=== PATIENT | male | born 1975 | race Asian ===

== ENCOUNTER 2019-07-16 09:25 | Emergency (ER) | payer OTHER ==
[~2019-07-16] VITALS: Ht 167.6 cm; Wt 86.8 kg
[2019-07-16 09:31] VITALS: BP 148/52
[2019-07-16] MEDS ORDERED: QUET100T PO (09:35)
== END 2019-07-16 11:23 | disposition home or self-care (01) ==
LOC: EMS 09:29
DX: K08.89 Other specified disorders of teeth and supporting structures (principal); R03.0 Elevated blood-pressure reading, without diagnosis of hypertension; F32.9 Major depressive disorder, single episode, unspecified; F20.9 Schizophrenia, unspecified; F17.210 Nicotine dependence, cigarettes, uncomplicated; F19.90 Other psychoactive substance use, unspecified, uncomplicated

== ENCOUNTER 2020-11-18 21:11 | Emergency (ER) | payer OTHER ==
[~2020-11-18] VITALS: Ht 165.1 cm; Wt 65.9 kg
[~2020-11-18 21:11] MED LIST: QUET100T PO
[2020-11-18 21:35] VITALS: BP 122/70
[2020-11-18] MEDS ORDERED: FLUO10CA24 PO (21:48)
[2020-11-18] MEDS ORDERED: LAMO25TA25 PO (21:48)
== END 2020-11-18 23:00 | disposition left against medical advice (07) ==
LOC: EMS 21:11
DX: J02.9 Acute pharyngitis, unspecified (principal); Z53.21 Procedure and treatment not carried out due to patient leaving prior to being seen by health care provider

== ENCOUNTER 2020-11-19 07:32 | Emergency (ER) | payer OTHER ==
[~2020-11-19] VITALS: Ht 165.1 cm; Wt 79.5 kg
[~2020-11-19 07:32] MED LIST changes: +FLUO10CA24 PO; +LAMO25TA25 PO
[2020-11-19 09:57] VITALS: BP 125/71
[2020-11-19] MEDS ORDERED: ACETAMINOPHEN 500 MG TABLET PO ONE (10:00)
== END 2020-11-19 10:09 | disposition home or self-care (01) ==
LOC: EMS 07:46
DX: H61.22 Impacted cerumen, left ear (principal); H66.92 Otitis media, unspecified, left ear; F31.9 Bipolar disorder, unspecified; I10 Essential (primary) hypertension; F20.9 Schizophrenia, unspecified; F17.210 Nicotine dependence, cigarettes, uncomplicated; F14.90 Cocaine use, unspecified, uncomplicated; F15.90 Other stimulant use, unspecified, uncomplicated
CPT/HCPCS: 69209; 99283

== ENCOUNTER 2020-11-24 08:00 | Emergency (ER) | payer OTHER ==
[~2020-11-24] VITALS: Ht 167.6 cm; Wt 75.0 kg
[2020-11-24 08:07] VITALS: BP 114/70
[2020-11-24] MEDS ORDERED: AMOX500C2 PO (08:22)
[2020-11-24] MEDS ORDERED: NEOMYCIN/POLYMYXIN B/HYDROCORT 10 ML OTIC SUSPENSION AS ONE (09:15)
== END 2020-11-24 09:42 | disposition home or self-care (01) ==
LOC: EMS 08:00
DX: H61.22 Impacted cerumen, left ear (principal); F31.9 Bipolar disorder, unspecified; I10 Essential (primary) hypertension; F20.9 Schizophrenia, unspecified; F17.210 Nicotine dependence, cigarettes, uncomplicated; F14.90 Cocaine use, unspecified, uncomplicated; F12.90 Cannabis use, unspecified, uncomplicated; F19.90 Other psychoactive substance use, unspecified, uncomplicated
CPT/HCPCS: 99283

== ENCOUNTER 2021-06-16 16:35 | Emergency (ER) | payer OTHER ==
[~2021-06-16] VITALS: Ht 167.6 cm; Wt 68.2 kg
[~2021-06-16 16:35] MED LIST changes: +AMOX500C2 PO
[2021-06-16] MEDS ORDERED: PROPARACAINE HCL 0.5% 15 ML OPHTHALMIC SOLUTION OU ONE (17:30)
[2021-06-16] MEDS ORDERED: FLUORESCEIN SODIUM 1 MG STRIP ONE (18:20)
[2021-06-16 19:43] VITALS: BP 153/91
== END 2021-06-16 20:06 | disposition home or self-care (01) ==
LOC: EMS 16:39
DX: T59.3X3A Toxic effect of lacrimogenic gas, assault, initial encounter (principal); H57.89 Other specified disorders of eye and adnexa; F31.9 Bipolar disorder, unspecified; I10 Essential (primary) hypertension; F20.9 Schizophrenia, unspecified; F17.210 Nicotine dependence, cigarettes, uncomplicated; F14.90 Cocaine use, unspecified, uncomplicated; F12.90 Cannabis use, unspecified, uncomplicated; F19.90 Other psychoactive substance use, unspecified, uncomplicated; Y92.89 Other specified places as the place of occurrence of the external cause
CPT/HCPCS: 99283

== ENCOUNTER 2021-06-26 11:41 | Emergency (ER) | payer OTHER ==
[~2021-06-26] VITALS: Ht 167.6 cm; Wt 72.7 kg
[2021-06-26 11:54] VITALS: BP 157/103
[2021-06-26 12:18] LABS: COVID AG,FIA SOURCE NASOPHARYNGEAL
[2021-06-26] MEDS ORDERED: ALBUTEROL SULFATE HFA 90 MCG/PUFF 8 GM INHALER IH ONE (13:15)
== END 2021-06-26 13:48 | disposition home or self-care (01) ==
LOC: EMS 11:41
DX: I10 Essential (primary) hypertension (principal); R06.00 Dyspnea, unspecified; F31.9 Bipolar disorder, unspecified; F20.9 Schizophrenia, unspecified; F17.210 Nicotine dependence, cigarettes, uncomplicated; F14.90 Cocaine use, unspecified, uncomplicated; F12.90 Cannabis use, unspecified, uncomplicated; F19.90 Other psychoactive substance use, unspecified, uncomplicated; Z20.822 Contact with and (suspected) exposure to COVID-19
CPT/HCPCS: 71045; 94640; 99284; J3535

== ENCOUNTER 2023-04-17 09:44 | Emergency (ER) | payer OTHER ==
[~2023-04-17] VITALS: Ht 165.1 cm; Wt 76.0 kg
[~2023-04-17 09:44] MED LIST changes: -LAMO25TA25 PO; +LAMO25TA36 PO
[2023-04-17 10:01] VITALS: TEMP 98.4
[2023-04-17 11:59] VITALS: BP 116/67; PULSE 60; RESP 16
[2023-04-17] MEDS ORDERED: IBUP-1492 PO (13:30)
== END 2023-04-17 13:41 | disposition home or self-care (01) ==
LOC: EMS 09:44
DX: S30.22XA Contusion of scrotum and testes, initial encounter (principal); F31.9 Bipolar disorder, unspecified; I10 Essential (primary) hypertension; F20.9 Schizophrenia, unspecified; F17.210 Nicotine dependence, cigarettes, uncomplicated; F14.90 Cocaine use, unspecified, uncomplicated; F12.90 Cannabis use, unspecified, uncomplicated; F15.90 Other stimulant use, unspecified, uncomplicated; X58.XXXA Exposure to other specified factors, initial encounter; Y93.89 Activity, other specified; Y92.89 Other specified places as the place of occurrence of the external cause; Y99.8 Other external cause status
CPT/HCPCS: 76870; 99284; Z7502

== ENCOUNTER 2023-07-24 12:47 | Inpatient (IN) | payer MEDICAID, OTHER ==
[~2023-07-24] VITALS: Ht 167.6 cm; Wt 82.7 kg
[~2023-07-24 12:47] MED LIST changes: -AMOX500C2 PO; -FLUO10CA24 PO; +IBUP-1492 PO; -LAMO25TA36 PO
[2023-07-24] MEDS ORDERED: [UNRECOGNIZED DRUG - CODE] TP (13:47)
[2023-07-24] MEDS ORDERED: METO-408 PO (13:47)
[2023-07-24] MEDS ORDERED: FLUO60SO10 TP (13:47)
[2023-07-24] MEDS ORDERED: FOLI-130 PO (13:47)
[2023-07-24 13:52] LABS: BASOPHILS % (AUTO) 0.5 % (0.0-2.0); EOSINOPHILS % (AUTO) 0.3 % (1.0-6.0); HEMATOCRIT 42.7 % (41-53); HEMOGLOBIN 13.5 g/dL (13.5-17.5); LYMPHOCYTES # (AUTO) 1.7 K/uL (1.0-4.8); LYMPHOCYTES % (AUTO) 13.5 % (22.0-44.0); MEAN CORPUSCULAR HEMOGLOBIN 27.3 pg (26.0-34.0); MEAN CORPUSCULAR HGB CONC 31.6 G/dL (31.0-37.0); MEAN CORPUSCULAR VOLUME 87 fL (80-100); MONOCYTES % (AUTO) 8.3 % (2.0-9.0); NEUTROPHILS # (AUTO) 9.6 K/uL (1.8-7.7); NEUTROPHILS % (AUTO) 77.4 % (40.0-70.0); PLATELET COUNT (AUTO) 318 K/uL (150-450); RED BLOOD CELL COUNT(AUTO) 4.93 MIL/uL (4.50-5.90); RED CELL DISTRIBUTION WIDTH 14.4 % (11.5-14.5); WHITE BLOOD COUNT (AUTO) 12.4 K/uL (4.5-11.0)
[2023-07-24 14:03] LABS: ANION GAP 12 mmol/L (8-16); CALCIUM, TOTAL 8.9 mg/dL (8.8-10.5); CARBON DIOXIDE 22 mmol/L (22-29); CHLORIDE 103 mmol/L (98-107); CREATININE 1.29 mg/dL (0.60-1.30); GLOMERULAR FILTR. RATE CALC 60 mL/min (>60); GLUCOSE,RANDOM 95 mg/dL (70-110); POTASSIUM 4.7 mmol/L (3.5-5.1); SODIUM SERUM 137 mmol/L (136-145); UREA NITROGEN, BLOOD 23 mg/dL (7-18)
[2023-07-24 14:12] LABS: ALCOHOL, BLOOD (SERUM) < 3 mg/dL (0-10)
[2023-07-24 14:14] LABS: ALANINE AMINOTRANSFERASE 1326 U/L (12-78); ALBUMIN 3.5 g/dL (3.4-5.0); ALKALINE PHOSPHATASE 84 U/L (46-116); ASPARTATE AMINOTRANSFERASE 1263 U/L (15-37); BILIRUBIN,TOTAL 2.5 mg/dL (0.1-1.0); TOTAL PROTEIN, SERUM 7.7 g/dL (6.4-8.2)
[2023-07-24] MEDS: LORazepam 2 MG TABLET PO ONE (16:56)
[2023-07-24 17:20] LABS: ALCOHOL, URINE DRUG SCREEN NEGATIVE (NEGATIVE); AMPHET/METH SCREEN,URINE POSITIVE (NEGATIVE); BARBITURATE SCREEN, URINE NEGATIVE (NEGATIVE); BENZODIAZEPINES SCREEN,URINE NEGATIVE (NEGATIVE); CANNABINOID SCREEN,URINE POSITIVE (NEGATIVE); COCAINE SCREEN,URINE NEGATIVE (NEGATIVE); METHADONE SCREEN, URINE NEGATIVE (NEGATIVE); OPIATE SCREEN,URINE NEGATIVE (NEGATIVE); PHENCYCLIDINE SCREEN,URINE NEGATIVE (NEGATIVE)
[2023-07-24] MEDS: LORazepam 1 MG TABLET PO ONE (19:16)
[2023-07-24] MEDS: HALOPERIDOL 5 MG TABLET PO ONE (19:16)
[2023-07-24 21:40] LABS: COVID AG,FIA SOURCE NASAL SWAB
[2023-07-24 22:20] LABS: SARS-COV2 (COVID) ANTIGEN,FIA Negative (Negative)
[2023-07-24] MEDS: ChlorproMAZINE HCL 50 MG/2 ML AMP IM ONE (22:59)
[2023-07-24] MEDS ORDERED: LORazepam 2 MG TABLET PO PRN (23:30)
[2023-07-24] MEDS ORDERED: OLANZapine 5 MG RAPDIS TABLET PO PRN (23:30)
[2023-07-24] MEDS ORDERED: ZOLPIDEM TARTRATE 10 MG TABLET PO PRN (23:30)
[2023-07-25 09:00] VITALS: BP 126/78; PULSE 100; RESP 20; TEMP 97.8; O2SAT 98
[2023-07-25 09:35] VITALS: BP 134/90; PULSE 122; RESP 28; TEMP 98.7; O2SAT 87
[2023-07-25] MEDS ORDERED: MAGNESIUM HYDROXIDE SUSPENSION 30 ML UDCUP PO PRN (09:45)
[2023-07-25] MEDS ORDERED: TUBERCULIN, PURIFIED PROTEIN DERIVATIVE 5 TU/0.1 ML SYRINGE ID ONE (09:45)
[2023-07-25] MEDS ORDERED: PROMETHAZINE HCL 25 MG TABLET PO PRN (09:45)
[2023-07-25] MEDS ORDERED: MAG HYDROX/ALUMINUM HYD/SIMETH ES 30 ML SUSPENSION UDCUP PO PRN (09:45)
[2023-07-25] MEDS ORDERED: ACETAMINOPHEN 325 MG TABLET PO PRN (09:45)
[2023-07-25] MEDS ORDERED: ALBUTEROL SULFATE HFA 90 MCG/PUFF 8 GM INHALER IH PRN (09:45)
[2023-07-25] MEDS ORDERED: GuaiFENesin/D-METHORPHAN [SUGAR-FREE] 200-20MG/10 ML SYRUP UDCUP PO PRN (09:45)
[2023-07-25] MEDS ORDERED: HydrOXYzine PAMOATE 50 MG CAPSULE PO PRN (09:45)
[2023-07-25] MEDS ORDERED: LOPERAMIDE HCL 2 MG CAPSULE PO PRN (09:45)
[2023-07-25] MEDS ORDERED: BETA15OI30 TP (11:46)
[2023-07-25] MEDS ORDERED: THIAMINE 100 MG TABLET PO SCH (17:00)
[2023-07-25] MEDS ORDERED: MELATONIN 5 MG TABLET PO SCH (21:00)
[2023-07-25] MEDS ORDERED: OLANZapine 5 MG RAPDIS TABLET PO SCH (21:00)
[2023-07-25] MEDS ORDERED: DIVALPROEX SODIUM 500 MG ER TABLET PO SCH (21:00)
[2023-07-26] MEDS ORDERED: MULTIVITAMINS WITH MINERALS, THERAPEUTIC TABLET PO SCH (09:00)
[2023-07-26] MEDS ORDERED: OMEGA-3/DHA/EPA/FISH OIL 1,000 MG CAPSULE PO SCH (09:00)
[2023-07-26] MEDS ORDERED: NALTREXONE HCL 50 MG TABLET PO SCH (09:00)
[2023-07-26] MEDS ORDERED: FOLIC ACID 1 MG TABLET PO SCH (09:00)
== END 2023-07-25 15:29 | disposition short-term general hospital (02) | DRG 750 ==
LOC: EMS 13:01 → B2S 07-25 07:17
PROVIDERS: ADMIT Psychiatry & Neurology Psychiatry; ATTEND Psychiatry & Neurology Psychiatry
PROC: GZHZZZZ Group Psychotherapy (ICD-10-PCS; principal; 2023-07-25)
PROC: GZ51ZZZ Individual Psychotherapy, Behavioral (ICD-10-PCS; 2023-07-25)
DX: F20.9 Schizophrenia, unspecified (principal); R45.851 Suicidal ideations; F17.200 Nicotine dependence, unspecified, uncomplicated; I10 Essential (primary) hypertension; J44.9 Chronic obstructive pulmonary disease, unspecified
CPT/HCPCS: 71045; 80053; 80307; 85025; 99285; G0480; J3230; J3535; 36415-L1; 36415-TC

== ENCOUNTER 2023-07-25 11:05 | Inpatient (IN) | payer MEDICAID, OTHER ==
[~2023-07-25] VITALS: Ht 170.2 cm; Wt 77.9 kg
[~2023-07-25 11:05] MED LIST changes: +FLUO60SO10 TP; +FOLI-130 PO; -IBUP-1492 PO; +METO-408 PO; -QUET100T PO; +[UNRECOGNIZED DRUG - CODE] TP
[2023-07-25] MEDS ORDERED: BETA15OI30 TP (11:46)
[2023-07-25 12:05] VITALS: PULSE 124; RESP 26; O2SAT 92
[2023-07-25] MEDS: ALBUTEROL SULFATE 2.5 MG/0.5 ML NEB SOLUTION NEB ONE (12:06)
[2023-07-25] MEDS: IPRATROPIUM BROMIDE 0.5 MG/2.5 ML NEB SOLUTION NEB ONE (12:06)
[2023-07-25] MEDS: MethylPREDNISolone SOD SUCC 125 MG/2 ML VIAL IVP ONE (12:08)
[2023-07-25 12:10] LABS: HEMATOCRIT 37.2 % (41-53); HEMOGLOBIN 11.8 g/dL (13.5-17.5); MEAN CORPUSCULAR HEMOGLOBIN 27.6 pg (26.0-34.0); MEAN CORPUSCULAR HGB CONC 31.6 G/dL (31.0-37.0); MEAN CORPUSCULAR VOLUME 87 fL (80-100); PLATELET COUNT (AUTO) 208 K/uL (150-450); RED BLOOD CELL COUNT(AUTO) 4.26 MIL/uL (4.50-5.90); RED CELL DISTRIBUTION WIDTH 15.3 % (11.5-14.5)
[2023-07-25 12:20] VITALS: PULSE 126; RESP 24; O2SAT 93
[2023-07-25 12:21] LABS: ANION GAP 15 mmol/L (8-16); CALCIUM, TOTAL 8.6 mg/dL (8.8-10.5); CARBON DIOXIDE 20 mmol/L (22-29); CHLORIDE 102 mmol/L (98-107); CREATININE 1.69 mg/dL (0.60-1.30); GLOMERULAR FILTR. RATE CALC 44 mL/min (>60); GLUCOSE,RANDOM 106 mg/dL (70-110); SODIUM SERUM 137 mmol/L (136-145); UREA NITROGEN, BLOOD 42 mg/dL (7-18)
[2023-07-25 12:24] LABS: INR 1.9 (0.9-1.1); PROTHROMBIN TIME 19.3 SEC (9.4-11.6)
[2023-07-25 12:28] LABS: AMMONIA 60 umol/L (11-32)
[2023-07-25 12:30] LABS: LACTIC ACID 6.1 mmol/L (0.4-2.0); TROPONIN I-HIGH SENSITIVITY 79 ng/L (<76)
[2023-07-25] MEDS: SODIUM CHLORIDE 0.9% 1,000 ML IV ONE (12:46)
[2023-07-25 12:50] LABS: BAND NEUTROPHILS % (MANUAL) 1 % (0-5); CORRECTED WHITE BLOOD COUNT 15.2 K/uL (4.5-11.0); LYMPHOCYTES % (MANUAL) 15 % (22-44); MONOCYTES % (MANUAL) 5 % (2-9); SEGMENTED NEUTROPHILS % 79 % (40-70); TOTAL CELLS COUNTED 100; WHITE BLOOD COUNT (AUTO) 15.2 K/uL (4.5-11.0)
[2023-07-25 12:52] LABS: RBC MORPHOLOGY COMMENT ABNORMAL RBC MORPH
[2023-07-25 12:54] LABS: ALBUMIN 3.4 g/dL (3.4-5.0); ALKALINE PHOSPHATASE 116 U/L (46-116); BILIRUBIN,TOTAL 10.8 mg/dL (0.1-1.0); CREATINE KINASE, TOTAL ONLY 2267 U/L (39-308); TOTAL PROTEIN, SERUM 7.1 g/dL (6.4-8.2)
[2023-07-25 12:59] LABS: ABG A-A DIFF O2 155.2 mmHg (10-20.0); ABG BASE EXCESS -6.8 mmol/L (-2.0-3.0); ABG METHEMOGLOBIN 3.8 % (0.0-1.5); ABG OXYGEN CONTENT 16.4 mL/dL (15.0-23.0); ABG OXYGEN SATURATION 97.5 % (95.0-98.0); ABG OXYHEMOGLOBIN 91.8 % (94.0-100.0); ABG PCO2 29 mmHg (35-45); ABG PH 7.409 (7.35-7.450); ABG TOTAL HEMOGLOBIN 12.6 G/dL (12.0-18.0); ALLEN TEST, BLOOD GAS Positive; O2 DEVICE,BLOOD GAS CANNULA (ROOM AIR); PO2, ARTERIAL BG 96.6 mmHg (88.0-96.0); SITE, BLOOD GAS RT RADIAL; SOURCE, BLOOD GAS ARTERIAL
[2023-07-25] MEDS ORDERED: ONDANSETRON HCL 4 MG/2 ML VIAL IVP PRN ×2 (13:00→15:45)
[2023-07-25 13:06] LABS: ALANINE AMINOTRANSFERASE 8182 U/L (12-78)
[2023-07-25] MEDS: PIPERACILLIN/TAZO 3.375 GM/D5W 50 ML IV ONE (13:07)
[2023-07-25 13:17] LABS: ASPARTATE AMINOTRANSFERASE 15728 U/L (15-37)
[2023-07-25] MEDS: DEXTROSE 5% IV ONE (14:05)
[2023-07-25] MEDS: WATER IV ONE (14:05)
[2023-07-25] MEDS: ACETYLCYSTEINE IV ONE (14:05)
[2023-07-25 14:16] LABS: APPEARANCE,URINE HAZY (CLEAR); BILIRUBIN,URINE NEGATIVE (NEGATIVE); COLOR,URINE YELLOW (YELLOW); GLUCOSE, URINE (UA) NEGATIVE (NEGATIVE); KETONES,URINE NEGATIVE (NEGATIVE); LEUKOCYTE ESTERASE ,URINE LARGE (NEGATIVE); NITRATE,URINE NEGATIVE (NEGATIVE); OCCULT BLOOD,URINE LARGE (NEGATIVE); PROTEIN,URINE 100-200,SEE CONFIRM mg/dL (NEGATIVE); SPECIFIC GRAVITIY, URINE 1.024 (1.003-1.030); UROBILINOGEN,URINE <=1.0 mg/dL (<=1.0)
[2023-07-25 14:24] LABS: ALCOHOL, URINE DRUG SCREEN NEGATIVE (NEGATIVE); AMPHET/METH SCREEN,URINE POSITIVE (NEGATIVE); BARBITURATE SCREEN, URINE NEGATIVE (NEGATIVE); BENZODIAZEPINES SCREEN,URINE NEGATIVE (NEGATIVE); CANNABINOID SCREEN,URINE POSITIVE (NEGATIVE); COCAINE SCREEN,URINE NEGATIVE (NEGATIVE); METHADONE SCREEN, URINE NEGATIVE (NEGATIVE); OPIATE SCREEN,URINE NEGATIVE (NEGATIVE); PHENCYCLIDINE SCREEN,URINE NEGATIVE (NEGATIVE)
[2023-07-25 14:30] LABS: ACETAMINOPHEN < 2 mcg/mL (10-30); SALICYLATE < 0.2 mg/dL (2.8-20.0)
[2023-07-25 14:33] LABS: INFLUENZA TYPE A NEGATIVE FOR TYPE A (NEGATIVE); INFLUENZA TYPE B NEGATIVE FOR TYPE B (NEGATIVE)
[2023-07-25 14:34] LABS: BACTERIA,URINE Many /HPF (None Seen); SULFOSALICYLIC ACID,URINE 2+ (Negative); WBC,URINE 51-100 /HPF (0-5)
[2023-07-25] MEDS ORDERED: ROCURONIUM BROMIDE 10 MG/ML 5 ML VIAL ONE (14:42)
[2023-07-25] MEDS ORDERED: DEXMEDETOMIDINE HCL 400 MCG in SODIUM CHLORIDE 0.9% 96 ML IV PRN (14:45)
[2023-07-25] MEDS ORDERED: MIDAZOLAM HCL 5 MG/ML VIAL ONE (14:50)
[2023-07-25 15:00] VITALS: PULSE 136; RESP 20; O2SAT 90
[2023-07-25] MEDS: MIDAZOLAM HCL 5 MG/ML VIAL IVP ONE (15:14)
[2023-07-25] MEDS: ROCURONIUM BROMIDE 10 MG/ML 5 ML VIAL IVP ONE (15:15)
[2023-07-25] MEDS: FUROSEMIDE 40 MG/4 ML VIAL IVP ONE (15:15)
[2023-07-25 15:34] LABS: CALCIUM, TOTAL 7.9 mg/dL (8.8-10.5); CREATININE 1.59 mg/dL (0.60-1.30); POTASSIUM 5.1 mmol/L (3.5-5.1)
[2023-07-25] MEDS: LACTULOSE 20 GM/30 ML SOLUTION UDCUP NG SCH (15:39)
[2023-07-25 15:40] LABS: TROPONIN I-HIGH SENSITIVITY 75 ng/L (<76)
[2023-07-25] MEDS: PROPOFOL 1000 MG/ISO-OSM 100 ML IV PRN (15:40)
[2023-07-25] MEDS ORDERED: HYDROCODONE/ACETAMINOPHEN 5-325 MG TABLET PO PRN (15:45)
[2023-07-25] MEDS ORDERED: ACETAMINOPHEN 325 MG TABLET PO PRN (15:45)
[2023-07-25] MEDS ORDERED: BISACODYL 10 MG RECTAL RECTAL SUPPOSITORY PR PRN (15:45)
[2023-07-25] MEDS ORDERED: MORPHINE SULFATE 2 MG/ML SYRINGE IVP PRN (15:45)
[2023-07-25] MEDS ORDERED: ZOLPIDEM TARTRATE 5 MG TABLET PO PRN (15:45)
[2023-07-25] MEDS ORDERED: MAGNESIUM HYDROXIDE SUSPENSION 30 ML UDCUP PO PRN (15:45)
[2023-07-25 16:22] LABS: ABG BASE EXCESS -11.2 mmol/L (-2.0-3.0); ABG CARBOXYHEMOGLOBIN 1.4 % (0.0-1.5); ABG HCO3 15.7 mmol/L (22.0-26.0); ABG METHEMOGLOBIN 4.8 % (0.0-1.5); ABG OXYGEN CONTENT 18.1 mL/dL (15.0-23.0); ABG OXYGEN SATURATION 99.7 % (95.0-98.0); ABG OXYHEMOGLOBIN 93.5 % (94.0-100.0); ABG PCO2 58 mmHg (35-45); PO2, ARTERIAL BG 397.1 mmHg (88.0-96.0); SOURCE, BLOOD GAS ARTERIAL; TEMPERATURE, FAHRENHEIT, BG 101.6 FAHREN (96.0-98.6)
[2023-07-25 16:23] LABS: ABG A-A DIFF O2 253.1 mmHg (10-20.0); ABG PH 7.116 (7.35-7.450); ALLEN TEST, BLOOD GAS Positive; O2 DEVICE,BLOOD GAS VENTILATOR (ROOM AIR); PEEP,BG 8 cm H2O; SITE, BLOOD GAS RT RADIAL; VT, ABG 500 ml
[2023-07-25] MEDS: VANCOMYCIN 1GM/WATER(PEG/NADA) 200 ML IV ONE (16:31)
[2023-07-25] MEDS: SODIUM BICARBONATE [ADULT] 8.4% 50 MEQ/50 ML SYRINGE IVP ONE (16:32)
[2023-07-25] MEDS: HEPARIN SODIUM,PORCINE 5,000 UNITS/ML VIAL SQ SCH (17:36)
[2023-07-25] MEDS: PIPERACILLIN/TAZO 3.375 GM/D5W 50 ML IV SCH (18:24)
[2023-07-25 18:47] LABS: CREATININE 1.85 mg/dL (0.60-1.30); POTASSIUM 4.2 mmol/L (3.5-5.1)
[2023-07-25 18:48] LABS: BASOPHILS % (AUTO) 0.2 % (0.0-2.0); EOSINOPHILS % (AUTO) 0 % (1.0-6.0); HEMATOCRIT 35.9 % (41-53); HEMOGLOBIN 11.4 g/dL (13.5-17.5); LYMPHOCYTES # (AUTO) 1.2 K/uL (1.0-4.8); LYMPHOCYTES % (AUTO) 6.8 % (22.0-44.0); MAGNESIUM 1.8 mg/dL (1.80-2.40); MEAN CORPUSCULAR HEMOGLOBIN 27.8 pg (26.0-34.0); MEAN CORPUSCULAR HGB CONC 31.8 G/dL (31.0-37.0); MEAN CORPUSCULAR VOLUME 87 fL (80-100); MONOCYTES # (AUTO) 0.7 K/uL (0.1-1.0); MONOCYTES % (AUTO) 4.3 % (2.0-9.0); NEUTROPHILS # (AUTO) 15.3 K/uL (1.8-7.7); PHOSPHORUS 3.9 mg/dL (2.5-4.9); PLATELET COUNT (AUTO) 225 K/uL (150-450); RED BLOOD CELL COUNT(AUTO) 4.11 MIL/uL (4.50-5.90); RED CELL DISTRIBUTION WIDTH 15.2 % (11.5-14.5); WHITE BLOOD COUNT (AUTO) 17.2 K/uL (4.5-11.0)
[2023-07-25 18:49] LABS: CALCIUM, TOTAL 7.9 mg/dL (8.8-10.5); CREATININE 1.85 mg/dL (0.60-1.30); NEUTROPHILS % (AUTO) 88.7 % (40.0-70.0); POTASSIUM 4.2 mmol/L (3.5-5.1)
[2023-07-25 18:50] VITALS: PULSE 107; RESP 29; O2SAT 95
[2023-07-25 18:58] LABS: ALBUMIN 3.1 g/dL (3.4-5.0); BILIRUBIN,DIRECT 4.2 mg/dL (0.00-0.20); BILIRUBIN,TOTAL 14.2 mg/dL (0.1-1.0); TOTAL PROTEIN, SERUM 6.8 g/dL (6.4-8.2)
[2023-07-25 19:30] LABS: RBC MORPHOLOGY COMMENT ABNORMAL RBC MORPH
[2023-07-25] MEDS: FentaNYL CIT 1000MCG/0.9% NACL 100 ML IV PRN (19:33)
[2023-07-25] MEDS: SODIUM BICARBONATE 150 MEQ in DEXTROSE 5%-WATER 1,000 ML IV SCH (20:58)
[2023-07-25] MEDS: DOCUSATE SODIUM 100 MG CAPSULE PO SCH (20:59)
[2023-07-25 22:17] LABS: ABG BASE EXCESS -1.4 mmol/L (-2.0-3.0); ABG CARBOXYHEMOGLOBIN 0.5 % (0.0-1.5); ABG HCO3 24.3 mmol/L (22.0-26.0); ABG METHEMOGLOBIN 4.1 % (0.0-1.5); ABG OXYGEN CONTENT 16.7 mL/dL (15.0-23.0); ABG OXYGEN SATURATION 99.6 % (95.0-98.0); ABG PCO2 27 mmHg (35-45); ABG PH 7.516 (7.35-7.450); PO2, ARTERIAL BG 284.5 mmHg (88.0-96.0); SOURCE, BLOOD GAS ARTERIAL; TEMPERATURE, FAHRENHEIT, BG 98.6 FAHREN (96.0-98.6)
[2023-07-25 22:20] LABS: ALLEN TEST, BLOOD GAS Positive; SITE, BLOOD GAS RT RADIAL
[2023-07-25 22:21] LABS: ABG A-A DIFF O2 401.3 mmHg (10-20.0); O2 DEVICE,BLOOD GAS VENT (ROOM AIR); PEEP,BG 5 cm H2O; VT, ABG 500 ml
[2023-07-25 23:00] VITALS: PULSE 105; RESP 30; O2SAT 96
[2023-07-26] VITALS (12 sets, daily range): BP systolic 93–104; BP diastolic 53–68; PULSE 88–105; RESP 20–30; TEMP 98.2–98.8; O2SAT 0–100
[2023-07-26 03:26] LABS: GLUCOMETER DEV NAME(LOC) ERT.5; GLUCOSE,POINT OF CARE 162 MG/DL (70-110)
[2023-07-26 07:09] LABS: CREATININE 1.49 mg/dL (0.60-1.30); POTASSIUM 3.4 mmol/L (3.5-5.1)
[2023-07-26 07:21] LABS: HEMATOCRIT 31.9 % (41-53); HEMOGLOBIN 10.6 g/dL (13.5-17.5); MEAN CORPUSCULAR HEMOGLOBIN 28.8 pg (26.0-34.0); MEAN CORPUSCULAR HGB CONC 33.2 G/dL (31.0-37.0); MEAN CORPUSCULAR VOLUME 87 fL (80-100); PLATELET COUNT (AUTO) 212 K/uL (150-450); RED BLOOD CELL COUNT(AUTO) 3.69 MIL/uL (4.50-5.90); RED CELL DISTRIBUTION WIDTH 14.9 % (11.5-14.5)
[2023-07-26] MEDS: PANTOPRAZOLE SODIUM 40 MG DR TABLET PO SCH (08:05)
[2023-07-26 08:07] LABS: HIV 1-2 SCREEN 4TH GEN W/RFLX Non Reactive (Non Reactive)
[2023-07-26 08:21] LABS: BAND NEUTROPHILS % (MANUAL) 9 % (0-5); CORRECTED WHITE BLOOD COUNT 29.8 K/uL (4.5-11.0); LYMPHOCYTES % (MANUAL) 11 % (22-44); MONOCYTES % (MANUAL) 2 % (2-9); SEGMENTED NEUTROPHILS % 78 % (40-70); TOTAL CELLS COUNTED 100
[2023-07-26 08:22] LABS: RBC MORPHOLOGY COMMENT NORMAL RBC MORPH; WHITE BLOOD COUNT (AUTO) 29.8 K/uL (4.5-11.0)
[2023-07-26] MEDS: PIPERACILLIN/TAZO 3.375 GM/D5W 50 ML IV SCH (11:18)
[2023-07-26] MEDS: VANCOMYCIN 500 MG/WATER(PEG) 100 ML IV ONE (11:18)
[2023-07-26 12:07] LABS: HEPATITIS A ANTIBODY IGM Negative (Negative); HEPATITIS B CORE IGM Negative (Negative); HEPATITIS C AB (EIA) Non Reactive (Non Reactive)
[2023-07-26 12:39] LABS: ABG A-A DIFF O2 363.4 mmHg (10-20.0); ABG BASE EXCESS 8.2 mmol/L (-2.0-3.0); ABG CARBOXYHEMOGLOBIN 2.1 % (0.0-1.5); ABG HCO3 31.6 mmol/L (22.0-26.0); ABG METHEMOGLOBIN 3.9 % (0.0-1.5); ABG OXYGEN SATURATION 99.1 % (95.0-98.0); ABG OXYHEMOGLOBIN 93.2 % (94.0-100.0); ABG PCO2 37 mmHg (35-45); ABG TOTAL HEMOGLOBIN 10.3 G/dL (12.0-18.0); ALLEN TEST, BLOOD GAS Positive; O2 DEVICE,BLOOD GAS VENTILATOR (ROOM AIR); SITE, BLOOD GAS RT RADIAL; SOURCE, BLOOD GAS ARTERIAL; TEMPERATURE, FAHRENHEIT, BG 98.2 FAHREN (96.0-98.6); VT, ABG 500 ml
[2023-07-26 12:40] LABS: PEEP,BG 5 cm H2O; SPONTANEOUS VT, BG 525 ml
[2023-07-26] MEDS: NOREPINEPHRINE 8 MG/0.9 % NACL 250 ML IV PRN (13:21)
[2023-07-26] MEDS: DOXYCYCLINE HYCLATE 100 MG in DEXTROSE 5%-WATER 100 ML IV SCH (16:08)
[2023-07-26] MEDS: SODIUM CHLORIDE 0.9% 2,100 ML IV ONE (16:09)
[2023-07-26] MEDS: SODIUM CHLORIDE 0.9% 1,000 ML IV ONE (16:53)
[2023-07-26 18:21] LABS: GLUCOMETER DEV NAME(LOC) ICU.S6; GLUCOSE,POINT OF CARE 140 MG/DL (70-110)
[2023-07-26] MEDS: VANCOMYCIN HCL 750 MG in DEXTROSE 5%-WATER 250 ML IV SCH (20:11)
[2023-07-26] MEDS: DOCUSATE SODIUM 100 MG/10 ML LIQUID UDCUP NG SCH (21:38)
[2023-07-26 23:49] LABS: ABG CARBOXYHEMOGLOBIN 3.2 % (0.0-1.5); ABG HCO3 28.7 mmol/L (22.0-26.0); ABG METHEMOGLOBIN 4.8 % (0.0-1.5); ABG OXYGEN CONTENT 13.4 mL/dL (15.0-23.0); ABG OXYGEN SATURATION 99.7 % (95.0-98.0); ABG OXYHEMOGLOBIN 91.7 % (94.0-100.0); ABG PCO2 38 mmHg (35-45); ABG PH 7.486 (7.35-7.450); ABG TOTAL HEMOGLOBIN 9.8 G/dL (12.0-18.0); PO2, ARTERIAL BG 291.1 mmHg (88.0-96.0); SOURCE, BLOOD GAS ARTERIAL; TEMPERATURE, FAHRENHEIT, BG 98.8 FAHREN (96.0-98.6)
[2023-07-26 23:51] LABS: O2 DEVICE,BLOOD GAS VENTILATOR (ROOM AIR); SITE, BLOOD GAS RT BRACHIAL
[2023-07-26 23:52] LABS: PEEP,BG 5 cm H2O; SPONTANEOUS VT, BG 523 ml; VT, ABG 500 ml
[2023-07-27] VITALS (15 sets, daily range): BP systolic 87–113; BP diastolic 63–95; PULSE 89–126; RESP 20–29; TEMP 98.3–100.1; O2SAT 84–92
[2023-07-27 05:44] LABS: MEAN CORPUSCULAR HEMOGLOBIN 29.6 pg (26.0-34.0); MEAN CORPUSCULAR HGB CONC 32.4 G/dL (31.0-37.0); MEAN CORPUSCULAR VOLUME 91 fL (80-100); PLATELET COUNT (AUTO) 229 K/uL (150-450); RED CELL DISTRIBUTION WIDTH 15.6 % (11.5-14.5)
[2023-07-27 07:54] LABS: BAND NEUTROPHILS % (MANUAL) 12 % (0-5); LYMPHOCYTES % (MANUAL) 8 % (22-44); MONOCYTES % (MANUAL) 11 % (2-9); SEGMENTED NEUTROPHILS % 69 % (40-70); TOTAL CELLS COUNTED 100
[2023-07-27 08:00] LABS: WHITE BLOOD COUNT (AUTO) 58.9 K/uL (4.5-11.0)
[2023-07-27 09:00] LABS: ALBUMIN 2.8 g/dL (3.4-5.0); ANION GAP 11 mmol/L (8-16); CALCIUM, TOTAL 7.6 mg/dL (8.8-10.5); CARBON DIOXIDE 26 mmol/L (22-29); CHLORIDE 105 mmol/L (98-107); CREATININE 1.74 mg/dL (0.60-1.30); GLOMERULAR FILTR. RATE CALC 42 mL/min (>60); GLUCOSE,RANDOM 131 mg/dL (70-110); POTASSIUM 4.6 mmol/L (3.5-5.1); SODIUM SERUM 142 mmol/L (136-145); UREA NITROGEN, BLOOD 61 mg/dL (7-18)
[2023-07-27] MEDS: POTASSIUM CHLORIDE 10% 40 MEQ/30 ML LIQUID UDCUP NG ONE (09:00)
[2023-07-27 09:04] LABS: CREATINE KINASE, TOTAL ONLY 1367 U/L (39-308)
[2023-07-27 09:14] LABS: ALANINE AMINOTRANSFERASE 4938 U/L (12-78); ALKALINE PHOSPHATASE 112 U/L (46-116); ASPARTATE AMINOTRANSFERASE 5295 U/L (15-37)
[2023-07-27] MEDS: *CLINICAL-LEVOFLOXACIN IVPB DOSING CLINICAL ONE (10:03)
[2023-07-27] MEDS: *CLINICAL-MEROPENEM DOSING CLINICAL ONE (10:11)
[2023-07-27] MEDS: LEVOFLOXACIN 750 MG/D5% WATER 150 ML IV SCH (11:40)
[2023-07-27] MEDS: LACTULOSE 20 GM/30 ML SOLUTION UDCUP PO SCH (12:35)
[2023-07-27] MEDS: MEROPENEM 1 GM in SODIUM CHLORIDE 0.9% 100 ML IV SCH (12:37)
[2023-07-27 17:38] LABS: ABG BASE EXCESS 1.2 mmol/L (-2.0-3.0); ABG CARBOXYHEMOGLOBIN 4.5 % (0.0-1.5); ABG HCO3 25.7 mmol/L (22.0-26.0); ABG METHEMOGLOBIN 5.4 % (0.0-1.5); ABG OXYGEN CONTENT 11.7 mL/dL (15.0-23.0); ABG OXYGEN SATURATION 98.6 % (95.0-98.0); ABG OXYHEMOGLOBIN 88.8 % (94.0-100.0); ABG PCO2 35 mmHg (35-45); ABG PH 7.468 (7.35-7.450); ABG TOTAL HEMOGLOBIN 9.2 G/dL (12.0-18.0); SOURCE, BLOOD GAS ARTERIAL; TEMPERATURE, FAHRENHEIT, BG 99.6 FAHREN (96.0-98.6)
[2023-07-27 17:39] LABS: ABG A-A DIFF O2 201.1 mmHg (10-20.0); ALLEN TEST, BLOOD GAS Positive; O2 DEVICE,BLOOD GAS VENTILATOR (ROOM AIR); PEEP,BG 5 cm H2O; SITE, BLOOD GAS RT RADIAL; SPONTANEOUS VT, BG 522 ml; VT, ABG 500 ml
[2023-07-28] VITALS: BP 93/67; PULSE 129; RESP 20
[2023-07-28 00:41] LABS: ABG BASE EXCESS -9.2 mmol/L (-2.0-3.0); ABG CARBOXYHEMOGLOBIN 3.7 % (0.0-1.5); ABG HCO3 17.8 mmol/L (22.0-26.0); ABG METHEMOGLOBIN 5.5 % (0.0-1.5); ABG OXYGEN CONTENT 12.1 mL/dL (15.0-23.0); ABG OXYGEN SATURATION 98.2 % (95.0-98.0); ABG OXYHEMOGLOBIN 89.2 % (94.0-100.0); ABG PCO2 28 mmHg (35-45); ABG PH 7.376 (7.35-7.450); ABG TOTAL HEMOGLOBIN 9.5 G/dL (12.0-18.0); PO2, ARTERIAL BG 106.5 mmHg (88.0-96.0); SOURCE, BLOOD GAS ARTERIAL; TEMPERATURE, FAHRENHEIT, BG 98.1 FAHREN (96.0-98.6)
[2023-07-28 00:42] LABS: O2 DEVICE,BLOOD GAS VENTILATOR (ROOM AIR); SITE, BLOOD GAS RT RADIAL; VT, ABG 500 ml
[2023-07-28 00:43] LABS: PEEP,BG 5 cm H2O
[2023-07-28 00:44] LABS: SPONTANEOUS VT, BG 525 ml
[2023-07-28 00:50] VITALS: PULSE 78; RESP 23; O2SAT 0
[2023-07-28 01:09] LABS: ACETAMINOPHEN < 2 mcg/mL (10-30)
[2023-07-28 01:13] LABS: LACTIC ACID 9.2 mmol/L (0.4-2.0)
[2023-07-28] MEDS ORDERED: CALCIUM CHLORIDE IV PRN (01:30)
[2023-07-28] MEDS ORDERED: WATER IV PRN (01:30)
[2023-07-28] MEDS ORDERED: DEXTROSE 5% IV PRN (01:30)
[2023-07-28] MEDS ORDERED: EPINEPHRINE IV PRN (01:30)
[2023-07-28] MEDS ORDERED: EPINEPHrine 5 MG in DEXTROSE 5%-WATER 245 ML IV PRN (01:45)
[2023-07-28] MEDS ORDERED: VASOPRESSIN 40 UNITS in DEXTROSE 5%-WATER 98 ML IV PRN (01:45)
[2023-07-28] MEDS ORDERED: SODIUM CHLORIDE 0.9% 1,000 ML ONE (02:03)
[2023-07-28 02:16] LABS: GLUCOMETER DEV NAME(LOC) ICU.S6; GLUCOSE,POINT OF CARE 103 MG/DL (70-110)
[2023-07-28] MEDS: SODIUM BICARBONATE 150 MEQ in DEXTROSE 5%-0.45% SODIUM CHL 1,000 ML IV SCH (02:21)
[2023-07-28] MEDS: EPINEPHrine 5 MG in DEXTROSE 5%-WATER 245 ML IV PRN (02:22)
[2023-07-28 02:37] LABS: HEMATOCRIT 31.7 % (41-53); HEMOGLOBIN 10.4 g/dL (13.5-17.5); MEAN CORPUSCULAR HEMOGLOBIN 32.2 pg (26.0-34.0); MEAN CORPUSCULAR HGB CONC 32.8 G/dL (31.0-37.0); MEAN CORPUSCULAR VOLUME 98 fL (80-100); PLATELET COUNT (AUTO) 289 K/uL (150-450); RED BLOOD CELL COUNT(AUTO) 3.22 MIL/uL (4.50-5.90); RED CELL DISTRIBUTION WIDTH 16.3 % (11.5-14.5)
[2023-07-28 02:53] LABS: ALBUMIN 1.9 g/dL (3.4-5.0); BILIRUBIN,TOTAL 23.4 mg/dL (0.1-1.0); CREATININE 3.98 mg/dL (0.60-1.30); POTASSIUM 5.8 mmol/L (3.5-5.1); TOTAL PROTEIN, SERUM 4.8 g/dL (6.4-8.2)
[2023-07-28] MEDS: DOPamine 400MG/D5W[STANDARD] 250 ML IV PRN (03:09)
[2023-07-28] MEDS: PHENYLEPHRINE 200 MG/D5%-WATER 250 ML IV PRN (03:11)
[2023-07-28 03:12] LABS: WHITE BLOOD COUNT (AUTO) 53.2 K/uL (4.5-11.0)
[2023-07-28] MEDS: VASOPRESSIN 40 UNITS in DEXTROSE 5%-WATER 98 ML IV PRN (03:12)
[2023-07-28 03:13] LABS: CALCIUM, TOTAL 13.6 mg/dL (8.8-10.5)
[2023-07-28 03:15] LABS: CORRECTED WHITE BLOOD COUNT 53.2 K/uL (4.5-11.0)
[2023-07-28 03:20] LABS: BAND NEUTROPHILS % (MANUAL) 9 % (0-5); LYMPHOCYTES % (MANUAL) 8 % (22-44); METAMYELOCYTES % 1 % (0-0); MONOCYTES % (MANUAL) 9 % (2-9); SEGMENTED NEUTROPHILS % 73 % (40-70); TOTAL CELLS COUNTED 100
[2023-07-28] MEDS ORDERED: ALBUTEROL SULFATE 2.5 MG/0.5 ML NEB SOLUTION NEB ONE (03:30)
[2023-07-28] MEDS: INSULIN REGULAR, HUMAN 100 UNITS/ML SQ ONE (03:43)
[2023-07-28] MEDS: DEXTROSE 50%-WATER 25 GM/50 ML SYRINGE IVP ONE (03:44)
[2023-07-28 04:00] VITALS: BP 132/94; PULSE 111; RESP 20
[2023-07-28 04:15] VITALS: PULSE 48; RESP 23; O2SAT 0
[2023-07-28 04:50] LABS: HEMATOCRIT 23.6 % (41-53); HEMOGLOBIN 7.2 g/dL (13.5-17.5); MEAN CORPUSCULAR HGB CONC 30.3 G/dL (31.0-37.0); MEAN CORPUSCULAR VOLUME 106 fL (80-100); PLATELET COUNT (AUTO) 167 K/uL (150-450); RED BLOOD CELL COUNT(AUTO) 2.24 MIL/uL (4.50-5.90); RED CELL DISTRIBUTION WIDTH 18.2 % (11.5-14.5)
[2023-07-28 04:57] LABS: INR 2.4 (0.9-1.1)
[2023-07-28 05:05] LABS: CREATININE 4.02 mg/dL (0.60-1.30); VANCOMYCIN,RANDOM 17.5 mcg/mL (25.0-50.0)
[2023-07-28 05:20] LABS: CALCIUM, TOTAL 12.8 mg/dL (8.8-10.5); POTASSIUM 6.1 mmol/L (3.5-5.1)
[2023-07-28 06:21] LABS: BAND NEUTROPHILS % (MANUAL) 10 % (0-5); LYMPHOCYTES % (MANUAL) 5 % (22-44); METAMYELOCYTES % 2 % (0-0); MONOCYTES % (MANUAL) 4 % (2-9); SEGMENTED NEUTROPHILS % 79 % (40-70); TOTAL CELLS COUNTED 100
[2023-07-28 06:22] LABS: CORRECTED WHITE BLOOD COUNT 52.3 K/uL (4.5-11.0); WHITE BLOOD COUNT (AUTO) 52.3 K/uL (4.5-11.0)
[2023-07-28] MEDS ORDERED: VANCOMYCIN 1GM/WATER(PEG/NADA) 200 ML IV PRN (07:30)
[2023-07-28] MEDS ORDERED: VANCOMYCIN 1GM/WATER(PEG/NADA) 200 ML IV ONE (08:00)
[2023-07-28 14:07] LABS: EPSTEIN-BARR DNA QUANT PCR Negative (Negative)
[2023-07-29 08:06] LABS: HEPATITIS C AB (EIA) Non Reactive (Non Reactive)
[2023-07-29 12:07] LABS: HEPATITIS A ANTIBODY IGM Negative (Negative); HEPATITIS B CORE IGM Negative (Negative)
[2023-07-29 18:07] LABS: LEGIONELLA PNEUMO AG URINE Negative (Negative); S PNEUMO SOURCE Urine; STREP PNEUMONIAE AG URINE Negative (Negative)
[2023-07-29 22:06] LABS: F-ACTIN (SMOOTH MUSCLE) AB IGG 15 Units (0-19)
[2023-08-01 10:00] LABS: PHOSPHATIDYLETHANOL Negative; PHOSPHATIDYLETHANOL QUANT. Negative
== END 2023-07-28 04:47 | DRG 720 ==
LOC: EMS 11:05 → ICUN 13:00 → ICU 07-26 10:43
PROVIDERS: ADMIT Internal Medicine; ATTEND Internal Medicine
PROC: 5A1945Z Respiratory Ventilation, 24-96 Consecutive Hours (ICD-10-PCS; principal; 2023-07-25)
PROC: 0BH17EZ Insertion of Endotracheal Airway into Trachea, Via Natural or Artificial Opening (ICD-10-PCS; 2023-07-25)
PROC: 5A12012 Performance of Cardiac Output, Single, Manual (ICD-10-PCS; 2023-07-28)
DX: A41.9 Sepsis, unspecified organism (principal); K72.00 Acute and subacute hepatic failure without coma; R65.21 Severe sepsis with septic shock; G92.8 Other toxic encephalopathy; J96.01 Acute respiratory failure with hypoxia; J96.02 Acute respiratory failure with hypercapnia; D68.9 Coagulation defect, unspecified; E87.20 Acidosis, unspecified; J18.9 Pneumonia, unspecified organism; I46.9 Cardiac arrest, cause unspecified; I50.23 Acute on chronic systolic (congestive) heart failure; N17.9 Acute kidney failure, unspecified; M62.82 Rhabdomyolysis; F20.9 Schizophrenia, unspecified; F31.9 Bipolar disorder, unspecified; N18.30 Chronic kidney disease, stage 3 unspecified; N13.6 Pyonephrosis; F19.10 Other psychoactive substance abuse, uncomplicated; I13.0 Hypertensive heart and chronic kidney disease with heart failure and stage 1 through stage 4 chronic kidney disease, or unspecified chronic kidney disease; E87.6 Hypokalemia; B17.9 Acute viral hepatitis, unspecified; B02.9 Zoster without complications; D64.9 Anemia, unspecified; F17.210 Nicotine dependence, cigarettes, uncomplicated; I42.0 Dilated cardiomyopathy; R31.0 Gross hematuria; K74.60 Unspecified cirrhosis of liver; K21.9 Gastro-esophageal reflux disease without esophagitis; Z79.899 Other long term (current) drug therapy
CPT/HCPCS: 36600; 70450; 71045; 71250; 72192; 74150; 76705; 76770; 80048; 80053; 80074; 80202; 80307; 81001; 81002; 82140; 82150; 82247; 82248; 82550; 82805; 82962; 82977; 83516; 83605; 83690; 83735; 83880; 84100; 84145; 84484; 85025; 85610; 86787; 87040; 87070; 87081; 87086; 87186; 87205; 87389; 87449; 87521; 87798; 87804; 87899; 92950; 93005; 93306; 94002; 94003; 99285; G0480; G0481; J0132; J0171; J1644; J1815; J1940; J1956; J2185; J2250; J2370; J2543; J2704; J2930; J3370; J3490; J7030; J7050; J7060; Q9967; 36415-L1; 36415-TC; J7613